=== PATIENT | male | born 1970 | race Caucasian/White ===

== ENCOUNTER 2016-08-02 21:01 | Emergency (ER) | payer OTHER ==
[~2016-08-02] VITALS: Ht 175.3 cm; Wt 80.0 kg
[~2016-08-02 21:01] MED LIST: ASPI325T PO; CYCL5TAB PO; LORT5TAB PO; OXYC-360 PO; SILV1CRE59 TOP; SUPETAB30 PO
[2016-08-02] MEDS ORDERED: SODIUM CHLORIDE 0.9% FLUSH 5 ML FLUSH IVF PRN (21:15)
[2016-08-02] MEDS ORDERED: KETOROLAC TROMETHAMINE 30 MG/ML (IVP) VIAL IVP ONE (21:15)
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
[2016-08-02] MEDS ORDERED: HYDR-3533 PO (21:59)
[2016-08-02] MEDS ORDERED: ACETAMINOPHEN/HYDROcodone 325 MG/5 MG TAB PO ONE (22:00)
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
== END 2016-08-02 23:15 | disposition home or self-care (01) ==
LOC: NEPE 21:01
DX: S42.002A Fracture of unspecified part of left clavicle, initial encounter for closed fracture (principal); V18.0XXA Pedal cycle driver injured in noncollision transport accident in nontraffic accident, initial encounter; Y93.55 Activity, bike riding; F17.210 Nicotine dependence, cigarettes, uncomplicated
CPT/HCPCS: 29240; 71010; 73000; 73030; 96374; 99283; J1885

== ENCOUNTER 2017-09-12 13:21 | Inpatient (IN) | payer OTHER ==
[~2017-09-12] VITALS: Ht 175.3 cm; Wt 74.5 kg
[~2017-09-12 13:21] MED LIST changes: -ASPI325T PO; +COMMODE PAIL WI1 MIS; -CYCL5TAB PO; +FAMO20TA2 PO; +FLEE5TAB PO; +HYDR-3533 PO; +LISI-519 PO; -LORT5TAB PO; +METH500T3 PO; +NEUR300C PO; -OXYC-360 PO; +OXYC1TAB36 PO; +PERC5TAB12 PO; +POLY17S PO; -SILV1CRE59 TOP; -SUPETAB30 PO; +THERM PO; +Transfer Board; +WHEEMIS3
[2017-09-12 16:50] VITALS: BP 133/89; PULSE 117; RESP 17; TEMP 100.5; O2SAT 98
[2017-09-12] MEDS: GABAPENTIN 300 MG CAP PO SCH (17:53)
[2017-09-12] MEDS: oxyCODONE/ACETAMINOPHEN 5 MG/325 MG TAB PO PRN (17:54)
[2017-09-12] MEDS: METHOCARBAMOL 500 MG TAB PO SCH ×2 (17:54→20:20)
[2017-09-12] MEDS ORDERED: SODIUM CHLORIDE FLUSH PRN IV FLUSH (18:00)
[2017-09-12] MEDS ORDERED: VANCOMYCIN 1,000 MG/NS 250 ML IV ONE ×2 (18:30)
[2017-09-12] MEDS ORDERED: Vancomycin Consult Pharmacy 1 EA OTHER SCH (18:30)
[2017-09-12 20:00] VITALS: BP 121/70; PULSE 119; RESP 18; TEMP 100.7; O2SAT 96
[2017-09-12] MEDS: SODIUM CHLORIDE FLUSH BID IV FLUSH SCH (20:20)
[2017-09-12] MEDS: CIPROFLOXACIN 400 MG PREMIX 200 ML IV SCH (20:20)
[2017-09-12] MEDS ORDERED: ACETAMINOPHEN 325 MG TAB PO PRN (23:45)
[2017-09-13] VITALS (7 sets, daily range): BP systolic 102–135; BP diastolic 55–75; PULSE 97–117; RESP 16–20; TEMP 98.1–101.6; O2SAT 97–100
[2017-09-13] MEDS: oxyCODONE/ACETAMINOPHEN 5 MG/325 MG TAB PO PRN ×5 (01:34→20:49)
[2017-09-13] MEDS: VANCOMYCIN INJ 1,200 MG in SODIUM CHLOR 0.9% 250 ML INJ 250 ML IV SCH ×2 (05:08→17:35)
[2017-09-13] MEDS: METHOCARBAMOL 500 MG TAB PO SCH ×4 (08:19→20:49)
[2017-09-13] MEDS: SODIUM CHLORIDE FLUSH BID IV FLUSH SCH ×2 (08:19→20:49)
[2017-09-13] MEDS: GABAPENTIN 300 MG CAP PO SCH ×3 (08:19→17:32)
[2017-09-13] MEDS: CIPROFLOXACIN 400 MG PREMIX 200 ML IV SCH ×2 (08:19→20:50)
[2017-09-13] MEDS ORDERED: oxyCODONE/ACETAMINOPHEN 5 MG/325 MG TAB PO PRN (09:45)
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
--- NOTE | 2017-09-13 13:33 | HHI.PR ---
Subjective Remarks pr comfortable overall; no new complaints Objective Vital Signs Date Time Temp Pulse Resp B/P (MAP) Pulse Ox O2 Delivery O2 Flow Rate FiO2 09/13/17 09:59 Room Air 09/13/17 08:00 98.1 106 20 130/64 (86) 98 09/13/17 04:00 Room Air 09/13/17 04:00 98.7 99 16 122/67 (85) 98 09/13/17 02:00 100.0 100 09/13/17 00:00 Room Air 09/13/17 00:00 101.6 117 20 135/75 (95) 98 09/12/17 20:00 Room Air 09/12/17 20:00 100.7 119 18 121/70 (87) 96 09/12/17 16:50 100.5 117 17 133/89 (104) 98 I/O 09/12/17 09/12/17 09/12/17 09/13/17 09/13/17 09/13/17 07:00 15:00 23:00 07:00 15:00 23:00 Intake Total 720 ml 780 ml Output Total 1200 ml Balance 720 ml -420 ml Intake Oral 720 ml 780 ml Output Urine Total 1200 ml # Voids 3 Objective Remarks examination of the right hand reveals significantly improved edema, no cellulitis or erythema; wound drained very little purulence on palpation; there were TWO occlusive dressings and no splint over the wounds which were promptly removed/corrected i changed the packing today once adn replaced splint moves all fingers easily has streaking to upper arm likely from elevation NVI throughout no pus expressed or fluctuant areas appreciated anywhere else in the right hand Assessment and Plan Problem List: (1) Infected hand ICD Codes: L08.9 - Local infection of the skin and subcutaneous tissue, unspecified Status: Acute Plan: continue IV abx,elevation, and packing changes if he stops improving, or worsens, we will go to OR for I & D; d/w patient Shiva Amaro III, MD Sep 13, 2017 13:33
[2017-09-13 21:06] LABS: AUTOMATED NEUTROPHIL # 6.1 TH/MM3 (1.8-7.7); BASOPHIL % 0.2 % (0.0-2.0); EOSINOPHIL # 0.2 TH/MM3 (0-0.4); EOSINOPHIL % 2.8 % (0.0-4.0); HEMATOCRIT 32.3 % (39.0-51.0); HEMOGLOBIN 11.4 GM/DL (13.0-17.0); LYMPH % 10.3 % (9.0-44.0); LYMPHOCYTE # 0.8 TH/MM3 (1.0-4.8); MEAN CELL VOLUME 87.8 FL (80.0-100.0); MEAN CORPUSCULAR HEMOGLOBIN 30.8 PG (27.0-34.0); MEAN CORPUSCULAR HGB CONC 35.1 % (32.0-36.0); MEAN PLATELET VOLUME 7.5 FL (7.0-11.0); MONOCYTE # 0.5 TH/MM3 (0-0.9); NEUT % 79.7 % (16.0-70.0); PLATELET COUNT 223 TH/MM3 (150-450); RED BLOOD COUNT 3.68 MIL/MM3 (4.50-5.90); RED CELL DISTRIBUTION WIDTH 13.9 % (11.6-17.2); WHITE BLOOD COUNT 7.6 TH/MM3 (4.0-11.0)
[2017-09-14] VITALS: BP 139/76; PULSE 111; RESP 18; TEMP 100.8; O2SAT 98
[2017-09-14] MEDS: oxyCODONE/ACETAMINOPHEN 5 MG/325 MG TAB PO PRN ×5 (00:58→20:56)
[2017-09-14 04:00] VITALS: BP 118/75; PULSE 102; RESP 18; TEMP 97.8; O2SAT 97
[2017-09-14] MEDS ORDERED: PHARMACY ORDERED LAB ONE (05:45)
[2017-09-14] MEDS: VANCOMYCIN INJ 1,200 MG in SODIUM CHLOR 0.9% 250 ML INJ 250 ML IV SCH (06:00)
[2017-09-14 06:54] LABS: CREATININE 0.83 MG/DL (0.60-1.30); VANCOMYCIN TROUGH 6.4 MCG/ML (5.0-10.0)
[2017-09-14 08:00] VITALS: BP 111/63; PULSE 104; RESP 20; TEMP 98.8; O2SAT 99
[2017-09-14] MEDS: GABAPENTIN 300 MG CAP PO SCH ×3 (08:17→16:45)
[2017-09-14] MEDS: ENOXAPARIN SODIUM 40 MG/0.4 ML SYRINGE SQ SCH (08:17)
[2017-09-14] MEDS: METHOCARBAMOL 500 MG TAB PO SCH ×4 (08:18→20:56)
[2017-09-14] MEDS: SODIUM CHLORIDE FLUSH BID IV FLUSH SCH ×2 (08:18→20:57)
[2017-09-14] MEDS: CIPROFLOXACIN 400 MG PREMIX 200 ML IV SCH ×2 (08:18→20:51)
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
[2017-09-14] MEDS ORDERED: MORPHINE SULFATE 4 MG/ML INJ IV PUSH PRN (11:45)
[2017-09-14] MEDS: CLINDAMYCIN 900 MG/NS PREMIX 50 ML IV SCH ×2 (11:53→20:52)
[2017-09-14 12:00] VITALS: BP 125/82; PULSE 101; RESP 20; TEMP 98.9; O2SAT 99
[2017-09-14] MEDS ORDERED: VANCOMYCIN 1 GM/200 ML PREMIX IV SCH (14:00)
--- NOTE | 2017-09-14 14:43 | HHI.PR ---
Subjective Remarks pr comfortable overall; no new complaints He has shown significant improvement today. The pain is significantly decreased Objective Vital Signs Date Time Temp Pulse Resp B/P (MAP) Pulse Ox O2 Delivery O2 Flow Rate FiO2 09/14/17 10:09 Room Air 09/14/17 08:00 98.8 104 20 111/63 (79) 99 09/14/17 04:00 97.8 102 18 118/75 (89) 97 09/14/17 00:00 100.8 111 18 139/76 (97) 98 09/13/17 20:45 Room Air 09/13/17 20:00 Room Air 09/13/17 20:00 99.5 110 18 123/72 (89) 99 09/13/17 16:00 98.5 108 20 102/55 (71) 97 I/O 09/13/17 09/13/17 09/13/17 09/14/17 09/14/17 09/14/17 07:00 15:00 23:00 07:00 15:00 23:00 Intake Total 780 ml 720 ml Output Total 1200 ml Balance -420 ml 720 ml Intake Oral 780 ml 720 ml Output Urine Total 1200 ml # Voids 2 2 # Bowel Movements 0 Result Diagram: 09/13/17203009/14/17 0013 Objective Remarks examination of the right hand reveals significantly improved edema, no cellulitis or erythema; wound drained very little purulence on palpation; i changed the packing today once adn replaced splint The edema and his hand has completely resolved as has the erythema The wound is clean with minimal residual drainage moves all fingers easily The streaking from the upper arm has disappeared and there is only a small amount in the midforearm NVI throughout No fluctuance anywhere Assessment and Plan Problem List: (1) Infected hand ICD Codes: L08.9 - Local infection of the skin and subcutaneous tissue, unspecified Status: Acute Plan: continue IV abx,elevation, and packing changes He's shown considerable improvement since yesterday. Continue packing changes elevation and IV antibiotics and follow-up on the cultures His white blood cell count is nearly normal Anticipate discharge in the next 48 hours with packing changes that will need to be done at home Shiva Amaro III, MD Sep 14, 2017 14:43
[2017-09-14 16:00] VITALS: BP 137/82; PULSE 94; RESP 20; TEMP 97.9; O2SAT 100
[2017-09-14 20:00] VITALS: BP 126/85; PULSE 100; RESP 20; TEMP 98.4; O2SAT 97
[2017-09-15 00:41] VITALS: BP 113/75; PULSE 106; RESP 18; TEMP 99.3; O2SAT 96
[2017-09-15] MEDS: oxyCODONE/ACETAMINOPHEN 5 MG/325 MG TAB PO PRN ×6 (00:44→21:55)
[2017-09-15] MEDS: CLINDAMYCIN 900 MG/NS PREMIX 50 ML IV SCH ×3 (05:01→20:37)
[2017-09-15 05:03] VITALS: BP 126/82; PULSE 90; RESP 18; TEMP 98.1; O2SAT 96
[2017-09-15] MEDS ORDERED: PHARMACY ORDERED LAB ONE (05:45)
[2017-09-15] MEDS: METHOCARBAMOL 500 MG TAB PO SCH ×4 (08:44→20:37)
[2017-09-15] MEDS: GABAPENTIN 300 MG CAP PO SCH ×3 (08:44→17:40)
[2017-09-15 08:49] VITALS: BP 129/75; PULSE 90; RESP 20; TEMP 98.7; O2SAT 96
[2017-09-15] MEDS: SODIUM CHLORIDE FLUSH BID IV FLUSH SCH ×2 (08:49→20:38)
[2017-09-15] MEDS: CIPROFLOXACIN 400 MG PREMIX 200 ML IV SCH ×2 (08:53→20:38)
[2017-09-15] MEDS: ENOXAPARIN SODIUM 40 MG/0.4 ML SYRINGE SQ SCH (09:00)
[2017-09-15] MEDS ORDERED: SENNOSIDES 8.6 MG TAB PO PRN (09:45)
[2017-09-15] MEDS ORDERED: BISACODYL 10 MG SUPP RECTAL PRN (09:45)
[2017-09-15] MEDS: DOCUSATE SODIUM 50 MG/SENNA 8.6 MG TAB PO SCH ×2 (09:45→20:37)
[2017-09-15] MEDS ORDERED: LACTULOSE SYRUP 20 GM/30 ML CUP PO PRN (09:45)
[2017-09-15] MEDS ORDERED: MAGNESIUM HYDROXIDE SUSP 30 ML CUP PO PRN (09:45)
--- NOTE | 2017-09-15 13:08 | HHI.PR ---
Subjective Remarks pr comfortable overall; no new complaints He has shown significant improvement today. The pain is significantly decreased He actually stated that he feels better today Objective Vital Signs Date Time Temp Pulse Resp B/P (MAP) Pulse Ox O2 Delivery O2 Flow Rate FiO2 09/15/17 08:49 98.7 90 20 129/75 (93) 96 09/15/17 08:00 Room Air 09/15/17 05:03 98.1 90 18 126/82 (97) 96 09/15/17 00:41 99.3 106 18 113/75 (88) 96 09/14/17 20:00 98.4 100 20 126/85 (99) 97 09/14/17 20:00 Room Air 09/14/17 16:00 97.9 94 20 137/82 (100) 100 I/O 09/14/17 09/14/17 09/14/17 09/15/17 09/15/17 09/15/17 07:00 15:00 23:00 07:00 15:00 23:00 Intake Total 480 ml Output Total 850 ml 600 ml 400 ml Balance -370 ml -600 ml -400 ml Intake Oral 480 ml Output Urine Total 850 ml 600 ml 400 ml # Voids 2 # Bowel Movements 0 Result Diagram: 09/13/17203009/14/17 0013 Objective Remarks examination of the right hand reveals no edema, no cellulitis or erythema; wound drained no purulence on palpation; The edema and his hand has completely resolved as has the erythema The wound is clean moves all fingers easily The streaking from the upper arm has disappeared and there is only a small amount in the midforearm NVI throughout No fluctuance anywhere Assessment and Plan Problem List: (1) Infected hand ICD Codes: L08.9 - Local infection of the skin and subcutaneous tissue, unspecified Status: Acute Plan: continue IV abx,elevation, and packing changes He's shown considerable improvement since yesterday. Continue packing changes elevation and IV antibiotics until all the redness swelling goes away Anticipate discharge in the next 48 hours with packing changes that will need to be done at home Shiva Amaro III, MD Sep 15, 2017 13:08
[2017-09-15 13:13] VITALS: BP 137/65; PULSE 93; RESP 20; TEMP 98.7; O2SAT 99
[2017-09-15 16:34] VITALS: BP 118/63; PULSE 93; RESP 18; TEMP 98.6; O2SAT 95
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
[2017-09-15 20:00] VITALS: BP_SYST 122; BP_SYST 134; BP_DIAS 70; BP_DIAS 72; PULSE 67; PULSE 95; RESP 18; RESP 20; TEMP 98.6; TEMP 98.7; O2SAT 100; O2SAT 98
[2017-09-16] VITALS: BP 142/60; PULSE 88; RESP 18; TEMP 99; O2SAT 98
[2017-09-16] MEDS: oxyCODONE/ACETAMINOPHEN 5 MG/325 MG TAB PO PRN ×4 (02:17→16:57)
[2017-09-16 04:00] VITALS: BP 144/67; PULSE 85; RESP 19; TEMP 98; O2SAT 97
[2017-09-16] MEDS: CLINDAMYCIN 900 MG/NS PREMIX 50 ML IV SCH ×2 (04:35→12:05)
[2017-09-16] MEDS: SODIUM CHLORIDE FLUSH BID IV FLUSH SCH (07:26)
[2017-09-16] MEDS: GABAPENTIN 300 MG CAP PO SCH ×3 (07:57→17:00)
[2017-09-16] MEDS: ENOXAPARIN SODIUM 40 MG/0.4 ML SYRINGE SQ SCH (07:57)
[2017-09-16] MEDS: DOCUSATE SODIUM 50 MG/SENNA 8.6 MG TAB PO SCH (07:57)
[2017-09-16] MEDS: METHOCARBAMOL 500 MG TAB PO SCH ×3 (07:57→17:00)
[2017-09-16] MEDS: CIPROFLOXACIN 400 MG PREMIX 200 ML IV SCH (07:58)
[2017-09-16 08:00] VITALS: BP 137/83; PULSE 80; RESP 18; TEMP 98.1; O2SAT 99
[2017-09-16 09:07] LABS: CREATININE 0.68 MG/DL (0.60-1.30)
[2017-09-16 12:00] VITALS: BP 125/67; PULSE 82; RESP 20; TEMP 97.9; O2SAT 100
[2017-09-16] MEDS ORDERED: CIPR-9 PO (13:36)
[2017-09-16] MEDS ORDERED: NORC5TAB PO (13:36)
--- NOTE | 2017-09-16 13:40 | HHI.PR ---
Subjective Remarks No new complaints. He feels fine Objective Vital Signs Date Time Temp Pulse Resp B/P (MAP) Pulse Ox O2 Delivery O2 Flow Rate FiO2 09/16/17 12:00 97.9 82 20 125/67 (86) 100 09/16/17 09:33 Room Air 09/16/17 08:00 98.1 80 18 137/83 (101) 99 09/16/17 04:00 98.0 85 19 144/67 (92) 97 09/16/17 04:00 Room Air 09/16/17 00:00 99.0 88 18 142/60 (87) 98 09/15/17 21:45 Room Air 09/15/17 20:00 98.7 95 20 122/72 (89) 98 09/15/17 16:34 98.6 93 18 118/63 (81) 95 I/O 09/15/17 09/15/17 09/15/17 09/16/17 09/16/17 09/16/17 06:59 14:59 22:59 06:59 14:59 22:59 Intake Total 250 ml 730 ml 50 ml 250 ml Output Total 600 ml 400 ml 1200 ml Balance -600 ml -150 ml 730 ml -1150 ml 250 ml Intake Oral 480 ml IV Total 250 ml 250 ml 50 ml 250 ml Output Urine Total 600 ml 400 ml 1200 ml # Voids 1 1 0 # Bowel Movements 1 0 0 Result Diagram: 09/13/17203009/16/17 0808 Objective Remarks examination of the right hand reveals no edema, no cellulitis or erythema; wound drained no purulence on palpation; The edema and his hand has completely resolved as has the erythema The wound is clean and closing, no drainage at all no purulence moves all fingers easily The streaking from the upper arm and forearm has disappeared completely NVI throughout No fluctuance anywhere Assessment and Plan Problem List: (1) Infected hand ICD Codes: L08.9 - Local infection of the skin and subcutaneous tissue, unspecified Status: Acute Plan: Okay to discharge home on oral antibiotics 10 days. I put prescriptions in his chart. Continue same wound care protocol at home. Follow- up me in the office in 7-10 days. I went over all this with the patient and he understands Shiva Amaro III, MD Sep 16, 2017 13:40
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
[2017-09-16] MEDS ORDERED: METH500T3 PO (16:06)
== END 2017-09-16 18:35 | disposition home or self-care (01) | DRG 561 ==
LOC: N04B 16:03
PROVIDERS: ADMIT Orthopaedic Surgery Hand Surgery; ATTEND Orthopaedic Surgery Hand Surgery
DX: T84.69XA Infection and inflammatory reaction due to internal fixation device of other site, initial encounter (principal); A49.01 Methicillin susceptible Staphylococcus aureus infection, unspecified site; I10 Essential (primary) hypertension; S72.141D Displaced intertrochanteric fracture of right femur, subsequent encounter for closed fracture with routine healing; S72.301D Unspecified fracture of shaft of right femur, subsequent encounter for closed fracture with routine healing; S32.509D Unspecified fracture of unspecified pubis, subsequent encounter for fracture with routine healing; V29.9XXD Motorcycle rider (driver) (passenger) injured in unspecified traffic accident, subsequent encounter; Z87.891 Personal history of nicotine dependence
CPT/HCPCS: 76937; 80202; 82565; 85025; 86403; 87070; 87186; 87205; J0744; J1650; J3370; J7050; L3808

== ENCOUNTER 2017-10-17 05:19 | Observation (INO) | payer OTHER ==
[~2017-10-17] VITALS: Ht 175.3 cm; Wt 75.0 kg
[~2017-10-17 05:19] MED LIST changes: -FAMO20TA2 PO; -FLEE5TAB PO; -HYDR-3533 PO; -LISI-519 PO; +NORC5TAB PO; -OXYC1TAB36 PO; -PERC5TAB12 PO; -POLY17S PO; -Transfer Board
[2017-10-17] MEDS ORDERED: SODIUM CHLORID 0.9% 500 ML IV PRN (05:45)
[2017-10-17] MEDS ORDERED: CHLORHEXIDINE GLUCONATE 2 % 1 PACK (2 CLOTHS) TOPICAL PRN (05:45)
[2017-10-17] MEDS ORDERED: LACTATED RINGER'S 1000 ML IV PRN (05:45)
[2017-10-17] MEDS ORDERED: POVIDONE IODINE 5% (ANTISEPSIS KIT) 4 APPLICATIONS EACH NARE PRN (05:45)
[2017-10-17] MEDS ORDERED: METOPROLOL TARTRATE 25 MG TAB PO PRN (05:45)
[2017-10-17] MEDS ORDERED: ceFAZolin 2 GM PREMIX 50 ML IV SCH (05:45)
[2017-10-17] MEDS ORDERED: CHLORHEXIDINE GLUCONATE 4% SOLN 120 ML BTL TOPICAL SCH (05:45)
[2017-10-17] MEDS ORDERED: VANCOMYCIN 1 GM/200 ML PREMIX ON-CALL IV SCH (05:45)
[2017-10-17] MEDS ORDERED: MIDAZOLAM HCL 2 MG/2 ML VIAL ONE (06:20)
[2017-10-17] MEDS ORDERED: ACETAMINOPHEN 1000 MG/100 ML 100 ML IV ONE (06:20)
[2017-10-17] MEDS ORDERED: FAMOTIDINE 20 MG/2 ML VIAL ONE (06:20)
[2017-10-17] MEDS ORDERED: VANCOMYCIN HCL 1000 MG VIAL ONE (06:26)
[2017-10-17] MEDS ORDERED: GENTAMICIN SULFATE 80 MG/2 ML VIAL ONE (06:26)
[2017-10-17] MEDS ORDERED: BUPIVACAINE/EPINEPHRINE 0.25% 50 ML VIAL ONE (07:48)
[2017-10-17] MEDS ORDERED: HYDR-3366 PO (08:12)
--- NOTE | 2017-10-17 08:16 | PD.ORT.PN ---
Subjective Subjective Remarks Postop day #0 status post open treatment of right femur nonunion with iliac crest bone graft Objective Vitals Vital Signs Date Time Temp Pulse Resp B/P (MAP) Pulse Ox O2 Delivery O2 Flow Rate FiO2 10/17/17 05:51 98.0 76 16 129/92 (104) 98 Objective Remarks Clean dry dressings intact right thigh and right hip. NVI right lower extremity Assessment & Plan Assessment and Plan Nonweightbearing right leg Plan on discharge home on Friday Follow-up orthopedics with Dr. Natarajan in 2 weeks Keep incisions clean and dry Hitesh Natarajan MD Oct 17, 2017 08:16
--- NOTE | 2017-10-17 08:21 | PD.OP ---
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 My P.A. presence was necessary throughout this case for the manipulation and positioning of the surgical extremity. My P.A. was assisting me throughout the duration of this procedure. The skill set of a physician assistant professor of communication was medically necessary to complete this procedure. During the surgical case the surgical product sales consultant was working at the back table and the physician assistant professor of communication was directly assisting me. Operation and Findings: Aleksey munoz sustained multiple injuries including open right distal femur fracture. Patient has gone on to develop a nonunion. Informed consent was obtained preoperatively. Operative site was marked. He was brought the operating. He was given IV sedation. Antibiotics were held until after cultures were obtained. Right leg and hip were prepped with alcohol followed Hibiclens and draped in usual sterile fashion. Timeout procedure was performed. Procedure began with a 4 inch incision of the lateral distal femur. Iliotibial band split in line with fibers. Vastus lateralis muscle was elevated anteriorly. The nonunion site was now visualized. Hardware was also visualized. At this point the fracture site was cleaned with curettes and rongeurs. Tissue cultures were obtained from fracture site. Antibiotics are now administered. A TPS bur was used to debride the edges of the bone. The edges of the fracture were debrided back to healthy bleeding bone. The nonunion site was cleaned of all fibrous tissue and debris. The wound was now thoroughly irrigated. Next attention was turned towards iliac crest bone grafting. A 3 similar incision was made of iliac crest. Subcutaneous tissue dissected with Bovie. Fascia was elevated. Osteotomes were used to create a window in the iliac crest. A cortical cancellus graft was obtained from the iliac crest to help fill in the cortical defect along the anterior medial femur. Curettes were also used to obtain cancellous bone graft. At this point the bone graft was placed into the defect of the distal femur. An additional 10 cc of Vivagen allograft bone graft was placed into the wound. The cortical cancellus fragment was placed to fill the cortical defect. Fluoroscopy confirmed appropriate placement of bone graft. Incisions were closed with #1 Vicryl, 3-0 Vicryl, and mahamed. Sterile dressings were applied. Patient was awakened and transferred to recovery room in stable condition. Needle sponge counts were correct Hitesh Hooks MD Oct 17, 2017 08:21
[2017-10-17] MEDS ORDERED: XARE10TA PO (08:23)
[2017-10-17] MEDS ORDERED: DO NOT ADM ANY ANTICOAGULANT DRUGS PRN (08:27)
[2017-10-17] MEDS ORDERED: diphenhydrAMINE HCL 25 MG CAP PO PRN (08:30)
[2017-10-17] MEDS ORDERED: MORPHINE SULFATE 4 MG/ML INJ IV PUSH PRN (08:30)
[2017-10-17] MEDS ORDERED: ONDANSETRON HCL 4 MG/2 ML VIAL IVP PRN (08:30)
[2017-10-17] MEDS ORDERED: *MEPERIDINE 25 MG INJ VIAL PERIprocedural Use ONLY ONE (08:30)
[2017-10-17] MEDS ORDERED: NALOXONE HCL 0.4 MG/ML AMP IV PUSH PRN (08:30)
[2017-10-17] MEDS ORDERED: Post-op Orders (for Pharmacy) XX ONE (08:30)
[2017-10-17] MEDS ORDERED: ERGOCALCIFEROL (VIT D2) 50,000 UNIT CAP PO SCH (08:30)
[2017-10-17] MEDS ORDERED: *morphine SULFATE 8 MG/ML PERIprocedure ONLY ONE ×2 (08:43→08:53)
[2017-10-17] MEDS: LACTATED RINGER'S 1000 ML INJ 1,000 ML IV SCH ×2 (08:48→20:51)
[2017-10-17] MEDS ORDERED: ceFAZolin INJ 1,000 MG VIAL IV ONE ×2 (08:53→12:00)
[2017-10-17] MEDS ORDERED: CHOLECALCIFEROL (VIT D3) 1000 UNIT TAB PO SCH (09:00)
[2017-10-17] MEDS ORDERED: CALCIUM/VITAMIN D 250 MG/125 U TAB PO SCH (09:00)
[2017-10-17] MEDS ORDERED: HYDROmorphone HCL PF 0.5 MG/0.5 ML SYRINGE ONE ×2 (09:07→10:58)
[2017-10-17] MEDS ORDERED: LIDOCAINE HCL 1% PF 5 ML SYRINGE OTHER ONE (12:00)
[2017-10-17] MEDS ORDERED: KETOROLAC TROMETHAMINE 30 MG/ML (IVP) VIAL IV PUSH ONE (12:00)
[2017-10-17] MEDS ORDERED: ONDANSETRON HCL 4 MG/2 ML VIAL IV ONE (12:00)
[2017-10-17] MEDS ORDERED: LACTATED RINGER'S 1000 ML INJ 1,000 ML IV ONE (12:00)
[2017-10-17] MEDS ORDERED: PROPOFOL 200 MG/20 ML AMP IV ONE (12:00)
[2017-10-17] MEDS ORDERED: DEXAMETHASONE SOD PHOS 4 MG/ML VIAL IV ONE (12:00)
[2017-10-17] MEDS: ACETAMINOPHEN/HYDROcodone 325 MG/10 MG TAB PO PRN ×4 (12:01→23:27)
[2017-10-17 14:15] VITALS: BP 137/84; PULSE 88; RESP 16; TEMP 97.8; O2SAT 98
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
[2017-10-17] MEDS: ceFAZolin 2 GM PREMIX 50 ML IV SCH ×2 (16:01→23:29)
[2017-10-17] MEDS: DOCUSATE SODIUM 50 MG/SENNA 8.6 MG TAB PO SCH (19:49)
[2017-10-17 19:55] VITALS: BP 129/83; PULSE 88; RESP 18; TEMP 97.8; O2SAT 96
[2017-10-17] MEDS ORDERED: VANCOMYCIN INJ 1,000 MG in SODIUM CHLOR 0.9% 250 ML INJ 250 ML IV SCH (20:00)
[2017-10-17 23:42] VITALS: BP 120/76; PULSE 85; RESP 18; TEMP 98.2; O2SAT 95
[2017-10-18] MEDS: ACETAMINOPHEN/HYDROcodone 325 MG/10 MG TAB PO PRN ×3 (02:37→08:39)
[2017-10-18 04:00] VITALS: BP 126/72; PULSE 79; RESP 18; TEMP 97.6; O2SAT 97
[2017-10-18 06:27] LABS: HEMATOCRIT 39.4 % (39.0-51.0); HEMOGLOBIN 13.3 GM/DL (13.0-17.0)
[2017-10-18 07:05] VITALS: BP 129/80; PULSE 73; RESP 18; TEMP 98.1; O2SAT 97
--- NOTE | 2017-10-18 07:20 | PD.ORT.PN ---
Subjective Subjective Remarks Patient resting currently this morning. States he plans to go home today. Objective Vitals Vital Signs Date Time Temp Pulse Resp B/P (MAP) Pulse Ox O2 Delivery O2 Flow Rate FiO2 10/18/17 04:00 97.6 79 18 126/72 (90) 97 10/17/17 23:42 98.2 85 18 120/76 (91) 95 10/17/17 19:55 97.8 88 18 129/83 (98) 96 10/17/17 14:15 97.8 88 16 137/84 (101) 98 10/17/17 13:30 98.8 88 18 122/81 (95) 99 Room Air 10/17/17 12:30 102 18 123/85 (98) 99 Room Air 10/17/17 11:30 98 18 123/89 (100) 99 Nasal Cannula 2 10/17/17 10:30 84 18 119/72 (88) 99 Nasal Cannula 2 10/17/17 10:00 78 18 129/81 (97) 99 Nasal Cannula 2 10/17/17 09:36 84 18 127/79 (95) 99 Nasal Cannula 2 10/17/17 09:15 83 18 129/75 (93) 100 Nasal Cannula 3 10/17/17 09:00 88 18 140/80 (100) 98 Nasal Cannula 3 10/17/17 08:45 100 18 154/85 (108) 98 Nasal Cannula 3 10/17/17 08:29 98.5 93 18 162/77 (105) 100 Simple Mask 6 I/O 10/17/17 10/17/17 10/17/17 10/18/17 10/18/17 10/18/17 06:59 14:59 22:59 06:59 14:59 22:59 Intake Total 1100 ml 250 ml 770 ml Output Total 725 ml 1800 ml Balance 375 ml 250 ml -1030 ml Intake Oral 720 ml IV Total 250 ml 50 ml Other 1100 ml Output Urine Total 650 ml 1800 ml Estimated Blood Loss 75 ml # Bowel Movements 0 Result Diagram: 10/18/17 0522 Objective Remarks Awake, alert, no acute distress Right lower extremity: Clean dry dressings intact right thigh and right hip. NVI right lower extremity. Negative Homans. Assessment & Plan Assessment and Plan POD#1 s/p R femur repair nonunion with iliac crest bone grafting Nonweightbearing right leg Plan on discharge home today Follow-up orthopedics with Dr. Natarajan in 2 weeks Keep incisions clean and dry oLri Franco MD Oct 18, 2017 07:20
[2017-10-18] MEDS ORDERED: ENOXAPARIN SODIUM 30 MG/0.3 ML SYRINGE SQ SCH (08:00)
[2017-10-18] MEDS: ceFAZolin 2 GM PREMIX 50 ML IV SCH (08:04)
[2017-10-18] MEDS: DOCUSATE SODIUM 50 MG/SENNA 8.6 MG TAB PO SCH (08:41)
== END 2017-10-18 10:49 | disposition home or self-care (01) ==
LOC: HSDC 05:19 → HSDI 08:25 → N06A 14:14
PROVIDERS: ADMIT Orthopaedic Surgery Orthopaedic Trauma; ATTEND Orthopaedic Surgery Orthopaedic Trauma
DX: S72.301K Unspecified fracture of shaft of right femur, subsequent encounter for closed fracture with nonunion (principal)
CPT/HCPCS: 01230; 27472; 73551; 76000; 85014; 85018; 87015; 87070; 87102; 87116; 87205; 87206; C1713; G0378; J0131; J0690; J1100; J1170; J1580; J1650; J1885; J2175; J2250; J2270; J2405; J3010; J3370; J7050; J7120

== ENCOUNTER 2018-04-08 10:01 | Observation (INO) ==
[2018-04-08] MEDS ORDERED: Sodium Chlor 0.9% Inj 250 ML ONE (10:35)
[2018-04-08] MEDS ORDERED: Metoprolol Tartrate 25 MG Tablet PO ONE (11:00)
[2018-04-08] MEDS ORDERED: Sodium Chlor 0.9% Inj 500 ML IV.CONT ONE (11:00)
[2018-04-08] MEDS ORDERED: Chlorhexidine Gluconate 2% 1 Pack (2 Cloths) TOPICAL ONE (11:00)
[2018-04-08] MEDS ORDERED: Vancomycin Inj 1,000 MG in Sodium Chlor 0.9% Inj 250 ML IV.SIG SCH (12:00)
[2018-04-08] MEDS ORDERED: Bupivacaine Liposomal PF 1.3% Inj 20 ML Vial ONE (13:03)
[2018-04-08] MEDS ORDERED: Bupivacaine/Epinephrine Inj 0.25% 50 ML Vial ONE (13:05)
[2018-04-08] MEDS ORDERED: HYDROmorphone PF Inj 2 MG/ML Vial ONE (14:47)
[2018-04-08] MEDS ORDERED: Sugammadex Inj 200 MG/2 ML Vial IV.PUSH ONE (16:58)
[2018-04-08] MEDS ORDERED: Post-op Orders (for Pharmacy) OTHER ONE (17:04)
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
[2018-04-08] MEDS ORDERED: *Meperidine Inj 25 MG/ML Vial PERIprocedural Use ONLY ONE (17:33)
[2018-04-08] MEDS ORDERED: fentaNYL Citrate Inj 100 MCG/2 ML Ampul ONE (17:39)
[2018-04-08] MEDS: Ketorolac Inj 30 MG/ML (IVP) Vial IV.PUSH SCH (17:56)
[2018-04-08] MEDS ORDERED: *morphine SULFATE 10 MG/ML PERIprocedure ONLY ONE ×2 (18:23→18:37)
[2018-04-08] MEDS: HYDROmorphone PF Inj 2 MG/ML Vial IV.PUSH PRN (19:03)
[2018-04-09] MEDS: HYDROmorphone PF Inj 2 MG/ML Vial IV.PUSH PRN ×7 (00:09→22:02)
[2018-04-09] MEDS: Ketorolac Inj 30 MG/ML (IVP) Vial IV.PUSH SCH ×5 (00:09→23:57)
--- NOTE | 2018-04-09 11:05 | P.PNGS ---
Subjective Interval history: He is belching and has pain in the right shoulder. Also c/o abdominal pain. Physical Exam Vital signs: Vital Signs 04/08/18 17:30 04/08/18 17:45 04/08/18 18:00 Temperature 98.3 F Pulse Rate 100 H 90 91 H Respiratory Rate 15 15 15 Blood Pressure 127/70 154/79 H 146/75 H Pulse Oximetry 100 95 96 04/08/18 18:15 04/08/18 18:23 04/08/18 18:30 Temperature Pulse Rate 92 H 94 H Respiratory Rate 16 16 16 Blood Pressure 144/72 H 133/71 Pulse Oximetry 98 97 04/08/18 18:32 04/08/18 18:45 04/08/18 19:00 Temperature Pulse Rate 102 H 98 H Respiratory Rate 15 18 15 Blood Pressure 128/65 135/65 Pulse Oximetry 99 97 04/08/18 19:02 04/08/18 19:15 04/08/18 19:30 Temperature Pulse Rate 100 H 103 H Respiratory Rate 16 12 15 Blood Pressure 136/68 127/62 Pulse Oximetry 98 98 04/08/18 19:40 04/08/18 20:12 04/08/18 20:13 Temperature Pulse Rate Respiratory Rate 20 20 Blood Pressure Pulse Oximetry 98 04/08/18 20:25 04/09/18 00:17 04/09/18 01:50 Temperature 98.4 F 98.3 F Pulse Rate 104 H 94 H Respiratory Rate 19 18 20 Blood Pressure 130/63 137/73 Pulse Oximetry 93 L 96 04/09/18 02:30 04/09/18 03:23 04/09/18 03:24 Temperature Pulse Rate Respiratory Rate 20 20 20 Blood Pressure Pulse Oximetry 04/09/18 04:00 04/09/18 04:13 Temperature 98.8 F Pulse Rate 100 H Respiratory Rate 20 20 Blood Pressure 130/75 Pulse Oximetry 96 Intake & Output 04/08/18 04/09/18 04/09/18 18:59 06:59 18:59 Intake Total 1999 Output Total 30 / 30 500 / 500 Balance 1969 -500 / -500 Weight 80.1 kg Intake: IV 1999 LR 1000 mL Inj 1,000 ML @ 100 1999 mls/hr IV.CONT .Q10H [facility] Rx#: [id number] Anesthesia Amount 1999 Output: Urine 500 / 500 Estimated Blood Loss 30 / 30 Other: Weight On Admission 80.1 kg Narrative: NAD, sitting in chair Abd: mild distention, binder in place Assessment and Plan - Plan S/p suprapubic incisional and right flank hernia repairs with mesh. + ileus, significant post op pain. Encourage ambulation. Cont post op pain management. WIll need to stay another night for pain control and due to ileus.
[2018-04-09] MEDS: Enoxaparin Inj 40 MG/0.4 ML Syringe SQ SCH (16:19)
[2018-04-10] MEDS: HYDROmorphone PF Inj 2 MG/ML Vial IV.PUSH PRN ×5 (01:19→17:16)
[2018-04-10] MEDS: Ketorolac Inj 30 MG/ML (IVP) Vial IV.PUSH SCH ×3 (05:23→17:10)
--- NOTE | 2018-04-10 13:08 | P.PNGS ---
Subjective Interval history: Cont to c/o pain. + flatus. Tolerating diet. Physical Exam Vital signs: Vital Signs 04/09/18 16:00 04/09/18 18:52 04/09/18 19:40 Temperature 98.2 F Pulse Rate 94 H Respiratory Rate 18 18 18 Blood Pressure 141/72 H Pulse Oximetry 98 04/09/18 20:00 04/09/18 20:28 04/09/18 20:58 Temperature 98.5 F Pulse Rate 96 H Respiratory Rate 17 18 18 Blood Pressure 134/80 Pulse Oximetry 96 04/09/18 22:32 04/10/18 00:00 04/10/18 00:23 Temperature 99.4 F Pulse Rate 99 H Respiratory Rate 18 18 18 Blood Pressure 145/83 H Pulse Oximetry 95 04/10/18 00:53 04/10/18 01:49 04/10/18 04:00 Temperature 98.6 F Pulse Rate 93 H Respiratory Rate 18 17 18 Blood Pressure 130/74 Pulse Oximetry 95 04/10/18 04:53 04/10/18 05:23 04/10/18 05:53 Temperature Pulse Rate Respiratory Rate 17 18 17 Blood Pressure Pulse Oximetry 04/10/18 06:40 04/10/18 08:00 04/10/18 12:00 Temperature 98.4 F 99.0 F Pulse Rate 86 91 H Respiratory Rate 18 18 18 Blood Pressure 148/86 H 128/65 Pulse Oximetry 95 95 Intake & Output 04/09/18 04/10/18 04/10/18 18:59 06:59 18:59 Intake Total 1720 / 1720 1480 / 1480 1000 / 1000 Output Total 1500 / 1500 850 / 850 850 / 850 Balance 220 / 220 630 / 630 150 / 150 Weight 111.7 kg Intake: IV 1000 / 1000 1000 / 1000 1000 / 1000 LR 1000 mL Inj 1,000 ML @ 100 1000 / 1000 1000 / 1000 1000 / 1000 mls/hr IV.CONT .Q10H [facility] Rx#: [id number] Oral 720 / 720 480 / 480 Output: Urine 1500 / 1500 850 / 850 850 / 850 Other: # Bowel Movements 0 Narrative: NAD Abd: RLQ ttp, SQ edema. BInder and athleticsupporter in place Assessment and Plan - Plan S/p suprapubic incisional and right flank hernia repairs with mesh. Ileus improving, continued pain. Encourage ambulation. Cont post op pain management. Plan dc home tomorrow.
[2018-04-10] MEDS: Enoxaparin Inj 40 MG/0.4 ML Syringe SQ SCH (17:11)
[2018-04-10 19:59] VITALS: RESP 18
[2018-04-11] MEDS: Ketorolac Inj 30 MG/ML (IVP) Vial IV.PUSH SCH ×2 (00:07→06:06)
[2018-04-11 08:46] VITALS: BP 141/82; PULSE 88; TEMP 97.2; O2SAT 95
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
== END 2018-04-11 11:36 | disposition home or self-care (01) ==
LOC: INTOOBSV 10:01 → HSDI 10:01 → N07 19:51
PROVIDERS: ADMIT Surgery; ATTEND Surgery